=== PATIENT | male | born 1950 ===

== ENCOUNTER 2020-08-08 11:15 | Inpatient (IN) | payer OTHER ==
[~2020-08-08] VITALS: Ht 162.6 cm; Wt 77.1 kg
[2020-08-08] MEDS ORDERED: DIOVAN PO (13:32)
[2020-08-15] MEDS ORDERED: VALSARTAN-HCTZ1 EACH PO (13:11)
[2020-08-15] MEDS ORDERED: LATANOPROST2.5 ML (13:12)
[2020-08-18] MEDS ORDERED: ULTRACET PO (11:44)
== END 2020-08-18 22:33 | disposition home or self-care (01) | DRG 330 ==
LOC: O/R 08-15 07:20 → SURG 08-15 07:20 → RECOVERY 08-15 11:15 → SURG 08-15 17:34
PROVIDERS: ADMIT Surgery; ATTEND Surgery
PROC: 0DJD8ZZ Inspection of Lower Intestinal Tract, Via Natural or Artificial Opening Endoscopic (ICD-10-PCS; 2020-08-15)
PROC: 3E0F7GC Introduction of Other Therapeutic Substance into Respiratory Tract, Via Natural or Artificial Opening (ICD-10-PCS; 2020-08-15)
PROC: 0DTN4ZZ Resection of Sigmoid Colon, Percutaneous Endoscopic Approach (ICD-10-PCS; principal; 2020-08-15 15:15)
DX: K57.32 Diverticulitis of large intestine without perforation or abscess without bleeding (principal); K56.600 Partial intestinal obstruction, unspecified as to cause; I11.9 Hypertensive heart disease without heart failure; J45.20 Mild intermittent asthma, uncomplicated; H91.8X3 Other specified hearing loss, bilateral